=== PATIENT | female | born 1950 | race Caucasian/White ===

== ENCOUNTER 2023-04-24 22:31 | Inpatient (IN) | payer SELFPAY ==
[2023-04-25] MEDS ORDERED: methylPREDNISolone NA SUCC 125 MG/2 ML VIAL IVPB ONE (00:32)
[2023-04-25] MEDS ORDERED: ALBUTEROL SO4 2.5/IPRATROPIUM 0.5 INH SOL 3 ML VIAL.NEB. NEB ONE ×2 (00:32→01:21)
[2023-04-25] MEDS ORDERED: methylPREDNISolone NA SUCC 125 MG/2 ML VIAL ONE (01:21)
[2023-04-25 02:05] LABS: HEMATOCRIT 38.6 % (32.4-45.2); HEMOGLOBIN 13.2 GM/dL (10.7-15.3); MCH 31.9 pg (25.7-33.7); MCHC 34.1 g/dl (32.0-36.0); MEAN CELL VOLUME 93.5 fl (80-96); MEAN PLT VOLUME 9.2 fl (7.5-11.1); PLATELET COUNT 189 10^3/uL (134-434); RBC 4.12 M/mm3 (3.60-5.2); RDW 13.6 % (11.6-15.6); WHITE BLOOD COUNT 8.4 K/mm3 (4.0-10.0)
[2023-04-25 02:11] LABS: INR 1.4 (0.83-1.09); PROTHROMBIN TIME (PATIENT) 16.2 SEC (9.7-13.0)
[2023-04-25 02:14] LABS: ACTIVATED PTT 31.3 SECONDS (25.2-36.5)
[2023-04-25 02:37] LABS: POTASSIUM 3.8 mmol/L (3.5-5.1)
[2023-04-25 02:41] LABS: ALBUMIN 3.6 g/dl (3.4-5.0); CALCIUM 9.3 mg/dL (8.5-10.1); MAGNESIUM 2.6 mg/dL (1.8-2.4)
[2023-04-25 02:44] LABS: CREATININE 2.1 mg/dL (0.55-1.3)
[2023-04-25 02:46] LABS: BILIRUBIN,TOTAL 0.2 mg/dL (0.2-1); TOT PROT 7.2 g/dl (6.4-8.2)
[2023-04-25 02:49] LABS: N-TERMINAL BNP 3476.3 pg/ml (5-125)
[2023-04-25 04:39] LABS: ANISOCYTOSIS 2+; MACROCYTOSIS 0
[2023-04-25] MEDS ORDERED: DOCUSATE SODIUM 100 MG CAPSULE (FP) PO PRN (05:33)
[2023-04-25] MEDS ORDERED: guaiFENesin/D-M SUGAR-FREE/ACLHOL-FREE (200 MG/10 MG) 5 ML PO PRN (08:16)
[2023-04-25] MEDS ORDERED: BENZOCAINE/MENTHOL (CHLORASEPTIC ) LOZENGE MM PRN (08:16)
[2023-04-25] MEDS ORDERED: REMDESIVIR 200 MG in SODIUM CHLORIDE 250 ML IVPB ONE (08:30)
[2023-04-25] MEDS ORDERED: CARVEDILOL 25 MG TABLET (FP) ONE (08:46)
[2023-04-25] MEDS: INSULIN ASPART SLIDING SCALE (NOVOLOG) 1 VIAL SQ SCH ×4 (09:08→21:13)
[2023-04-25] MEDS: CARVEDILOL 25 MG TABLET (FP) PO SCH ×2 (09:09→22:43)
[2023-04-25] MEDS: methylPREDNISolone NA SUCC 40 MG/1 ML VIAL IVPUSH SCH ×2 (09:09→17:42)
[2023-04-25 10:53] LABS: PH,URINE 5.5 (5.0-8.0); URINE APPEARANCE CLEAR; URINE BILIRUBIN NEGATIVE (NEGATIVE); URINE COLOR YELLOW; URINE GLUCOSE (UA) 3+ (NEGATIVE); URINE KETONE NEGATIVE (NEGATIVE); URINE LEUK ESTERASE NEGATIVE (NEGATIVE); URINE NITRITE NEGATIVE (NEGATIVE); URINE PROTEIN NEGATIVE (NEGATIVE); URINE UROBILINOGEN 0.2 mg/dL (0.2-1.0)
[2023-04-25] MEDS ORDERED: INSULIN (NOVOLOG) ASPART 100 UNITS/ML 10ML VIAL ONE ×2 (17:44→21:08)
[2023-04-25 18:34] VITALS: BMI 43.0
[2023-04-25] MEDS: RIVAROXABAN 20 MG TABLET PO SCH (19:13)
[2023-04-25] MEDS: ALBUTEROL SO4 0.083% IH SOL 2.5 MG/3 ML VIAL.NEB. NEB PRN ×2 (19:27→22:00)
[2023-04-25] MEDS: carBAMazepine 100 MG TAB.CHEW PO SCH (22:51)
[2023-04-26] MEDS ORDERED: guaiFENesin/D-M SUGAR-FREE/ACLHOL-FREE 5 ML UNIT DOSE PO PRN (01:00)
[2023-04-26] MEDS: methylPREDNISolone NA SUCC 40 MG/1 ML VIAL IVPUSH SCH ×3 (01:06→17:29)
[2023-04-26] MEDS: INSULIN ASPART SLIDING SCALE (NOVOLOG) 1 VIAL SQ SCH ×5 (01:18→21:29)
[2023-04-26] MEDS ORDERED: INSULIN (NOVOLOG) ASPART 100 UNITS/ML 10ML VIAL ONE ×2 (06:48→21:19)
[2023-04-26 09:49] LABS: BASO % 0.3 % (0-2.0); EOS % 0.1 % (0-4.5); HEMATOCRIT 35.4 % (32.4-45.2); HEMOGLOBIN 11.8 GM/dL (10.7-15.3); LYMPH % 17.2 % (8-40); MCH 31.5 pg (25.7-33.7); MCHC 33.3 g/dl (32.0-36.0); MEAN CELL VOLUME 94.4 fl (80-96); MEAN PLT VOLUME 9.4 fl (7.5-11.1); MONO % 16.2 % (3.8-10.2); NEUT % 66.2 % (42.8-82.8); PLATELET COUNT 182 10^3/uL (134-434); RBC 3.75 M/mm3 (3.60-5.2); RDW 13.9 % (11.6-15.6); WHITE BLOOD COUNT 6.7 K/mm3 (4.0-10.0)
[2023-04-26 10:27] LABS: POTASSIUM 4.2 mmol/L (3.5-5.1)
[2023-04-26 10:57] LABS: CALCIUM 9.3 mg/dL (8.5-10.1)
[2023-04-26 11:01] LABS: CREATININE 1.7 mg/dL (0.55-1.3)
[2023-04-26] MEDS: CARVEDILOL 25 MG TABLET (FP) PO SCH ×2 (11:06→21:28)
[2023-04-26] MEDS: REMDESIVIR 100 MG in SODIUM CHLORIDE 250 ML IVPB SCH (11:06)
[2023-04-26] MEDS: ALBUTEROL SO4 2.5/IPRATROPIUM 0.5 INH SOL 3 ML VIAL.NEB. NEB SCH ×2 (15:35→20:26)
[2023-04-26] MEDS: RIVAROXABAN 20 MG TABLET PO SCH (17:29)
[2023-04-26] MEDS: amLODIPine BESYLATE 10 MG TABLET (FP) PO SCH (20:40)
[2023-04-26] MEDS: carBAMazepine 100 MG TAB.CHEW PO SCH (21:29)
[2023-04-26] MEDS: BUDESONIDE/FORMETEROL FUMARATE 160/4.5 mcg INHALER IH SCH (22:30)
[2023-04-27] MEDS ORDERED: INSULIN (NOVOLOG) ASPART 100 UNITS/ML 10ML VIAL SQ ONE (02:46)
[2023-04-27] MEDS ORDERED: hydrALAZINE HCL 20 MG/ML VIAL IVPB ONE (02:48)
[2023-04-27] MEDS: methylPREDNISolone NA SUCC 40 MG/1 ML VIAL IVPUSH SCH ×3 (02:48→17:28)
[2023-04-27] MEDS: INSULIN ASPART SLIDING SCALE (NOVOLOG) 1 VIAL SQ SCH ×4 (06:45→22:06)
[2023-04-27] MEDS: ALBUTEROL SO4 2.5/IPRATROPIUM 0.5 INH SOL 3 ML VIAL.NEB. NEB SCH ×4 (07:43→20:08)
[2023-04-27] MEDS: amLODIPine BESYLATE 10 MG TABLET (FP) PO SCH (10:45)
[2023-04-27] MEDS: REMDESIVIR 100 MG in SODIUM CHLORIDE 250 ML IVPB SCH (10:45)
[2023-04-27] MEDS: BUDESONIDE/FORMETEROL FUMARATE 160/4.5 mcg INHALER IH SCH ×2 (10:45→21:59)
[2023-04-27] MEDS: CARVEDILOL 25 MG TABLET (FP) PO SCH (10:45)
[2023-04-27] MEDS ORDERED: INSULIN (NOVOLOG) ASPART 100 UNITS/ML 10ML VIAL ONE ×3 (12:04→22:04)
[2023-04-27 13:20] LABS: HEMOGLOBIN 11.9 GM/dL (10.7-15.3); LYMPH % 11.2 % (8-40); MCH 30.9 pg (25.7-33.7); MEAN CELL VOLUME 93.6 fl (80-96); MEAN PLT VOLUME 9.2 fl (7.5-11.1); MONO % 11.7 % (3.8-10.2); NEUT % 77.1 % (42.8-82.8); PLATELET COUNT 173 10^3/uL (134-434); RBC 3.85 M/mm3 (3.60-5.2); RDW 14.2 % (11.6-15.6); WHITE BLOOD COUNT 7.2 K/mm3 (4.0-10.0)
[2023-04-27 13:46] LABS: CHLORIDE 102 mmol/L (98-107); POTASSIUM 4.8 mmol/L (3.5-5.1); SODIUM 138 mmol/L (136-145)
[2023-04-27 13:48] LABS: ALBUMIN 3.4 g/dl (3.4-5.0); ANION GAP 10 mmol/L (4-13); BLOOD UREA NITROGEN 66.3 mg/dL (7-18); CALCIUM 9.2 mg/dL (8.5-10.1); CO2 26 mmol/L (21-32)
[2023-04-27 13:52] LABS: BILIRUBIN,TOTAL 0.2 mg/dL (0.2-1); CREATININE 1.4 mg/dL (0.55-1.3); SGOT/AST 18 U/L (15-37); SGPT/ALT 35 U/L (13-61)
[2023-04-27 13:53] LABS: TOT PROT 6.7 g/dl (6.4-8.2)
[2023-04-27 13:54] LABS: ALK PHOS 50 U/L (45-117); GLUCOSE,RANDOM 419 mg/dL (74-106)
[2023-04-27] MEDS ORDERED: SODIUM CHLORIDE 0.45% 1,000 ML IV SCH (16:45)
[2023-04-27] MEDS: RIVAROXABAN 20 MG TABLET PO SCH (17:29)
[2023-04-27] MEDS ORDERED: INSULIN (NOVOLOG MIX 70/30) 100 UNITS/ML MDV SQ ONE (17:30)
[2023-04-27] MEDS: carBAMazepine 100 MG TAB.CHEW PO SCH (21:58)
[2023-04-27] MEDS: hydrALAZINE HCL 10 MG TABLET PO SCH (23:07)
[2023-04-27] MEDS: ATORVASTATIN CA 10 MG TABLET (FP) PO SCH (23:07)
[2023-04-28] MEDS: methylPREDNISolone NA SUCC 40 MG/1 ML VIAL IVPUSH SCH ×3 (02:01→17:36)
[2023-04-28] MEDS: hydrALAZINE HCL 10 MG TABLET PO SCH ×3 (05:47→22:14)
[2023-04-28] MEDS ORDERED: INSULIN (NOVOLOG) ASPART 100 UNITS/ML 10ML VIAL ONE ×2 (06:09→11:23)
[2023-04-28] MEDS: INSULIN ASPART SLIDING SCALE (NOVOLOG) 1 VIAL SQ SCH ×4 (06:38→22:43)
[2023-04-28] MEDS: ALBUTEROL SO4 2.5/IPRATROPIUM 0.5 INH SOL 3 ML VIAL.NEB. NEB SCH ×4 (07:25→20:25)
[2023-04-28 10:52] LABS: ALBUMIN 3.6 g/dl (3.4-5.0); ALK PHOS 53 U/L (45-117); ANION GAP 11 mmol/L (4-13); BILIRUBIN,TOTAL 0.4 mg/dL (0.2-1); BLOOD UREA NITROGEN 65.3 mg/dL (7-18); CALCIUM 9.2 mg/dL (8.5-10.1); CHLORIDE 100 mmol/L (98-107); CO2 23 mmol/L (21-32); CREATININE 1.7 mg/dL (0.55-1.3); GLUCOSE,RANDOM 409 mg/dL (74-106); POTASSIUM 4.8 mmol/L (3.5-5.1); SGOT/AST 18 U/L (15-37); SGPT/ALT 46 U/L (13-61); SODIUM 134 mmol/L (136-145); TOT PROT 7.1 g/dl (6.4-8.2)
[2023-04-28] MEDS: REMDESIVIR 100 MG in SODIUM CHLORIDE 250 ML IVPB SCH (11:09)
[2023-04-28] MEDS: BUDESONIDE/FORMETEROL FUMARATE 160/4.5 mcg INHALER IH SCH ×2 (11:29→22:19)
[2023-04-28] MEDS: ACETAMINOPHEN 325 MG TABLET (FP) PO PRN ×2 (13:15→22:14)
[2023-04-28] MEDS: RIVAROXABAN 20 MG TABLET PO SCH (17:36)
[2023-04-28] MEDS: ATORVASTATIN CA 10 MG TABLET (FP) PO SCH (22:14)
[2023-04-28 22:15] LABS: GLUCOSE,RANDOM 482 mg/dL (74-106)
[2023-04-28] MEDS: carBAMazepine 100 MG TAB.CHEW PO SCH (22:43)
[2023-04-29] MEDS: methylPREDNISolone NA SUCC 40 MG/1 ML VIAL IVPUSH SCH ×3 (02:15→18:13)
[2023-04-29] MEDS: INSULIN ASPART SLIDING SCALE (NOVOLOG) 1 VIAL SQ SCH ×5 (06:55→22:56)
[2023-04-29] MEDS: hydrALAZINE HCL 10 MG TABLET PO SCH ×2 (06:56→15:09)
[2023-04-29] MEDS: ALBUTEROL SO4 2.5/IPRATROPIUM 0.5 INH SOL 3 ML VIAL.NEB. NEB SCH ×4 (07:15→20:37)
[2023-04-29 09:21] LABS: BASO % 0.2 % (0-2.0); EOS % 0.1 % (0-4.5); LYMPH % 11.7 % (8-40); MCH 31.7 pg (25.7-33.7); MCHC 33.3 g/dl (32.0-36.0); MEAN CELL VOLUME 95.1 fl (80-96); MEAN PLT VOLUME 8.8 fl (7.5-11.1); MONO % 16.4 % (3.8-10.2); NEUT % 71.6 % (42.8-82.8); PLATELET COUNT 209 10^3/uL (134-434); RDW 13.4 % (11.6-15.6); WHITE BLOOD COUNT 9.6 K/mm3 (4.0-10.0)
[2023-04-29 09:44] LABS: CHLORIDE 100 mmol/L (98-107); POTASSIUM 4.9 mmol/L (3.5-5.1); SODIUM 132 mmol/L (136-145)
[2023-04-29 10:12] LABS: CALCIUM 9.5 mg/dL (8.5-10.1)
[2023-04-29 10:14] LABS: ALBUMIN 3.7 g/dl (3.4-5.0); ANION GAP 10 mmol/L (4-13); BLOOD UREA NITROGEN 71.1 mg/dL (7-18); CO2 23 mmol/L (21-32)
[2023-04-29 10:16] LABS: CREATININE 1.7 mg/dL (0.55-1.3); SGOT/AST 15 U/L (15-37); SGPT/ALT 47 U/L (13-61)
[2023-04-29 10:18] LABS: TOT PROT 7.3 g/dl (6.4-8.2)
[2023-04-29 10:20] LABS: ALK PHOS 54 U/L (45-117); BILIRUBIN,TOTAL 0.4 mg/dL (0.2-1)
[2023-04-29 10:21] LABS: GLUCOSE,RANDOM 414 mg/dL (74-106)
[2023-04-29] MEDS: INSULIN (LEVEMIR) 100 UNITS/ML UNITS SQ SCH ×2 (11:03→22:45)
[2023-04-29] MEDS: REMDESIVIR 100 MG in SODIUM CHLORIDE 250 ML IVPB SCH (11:03)
[2023-04-29] MEDS: BUDESONIDE/FORMETEROL FUMARATE 160/4.5 mcg INHALER IH SCH ×2 (11:03→22:50)
[2023-04-29] MEDS ORDERED: SODIUM CHLORIDE 0.45% 1,000 ML IV SCH (11:30)
[2023-04-29 12:42] LABS: LIPASE 182 U/L (73-393)
[2023-04-29] MEDS ORDERED: INSULIN (NOVOLOG) ASPART 100 UNITS/ML 10ML VIAL ONE (12:55)
[2023-04-29] MEDS: RIVAROXABAN 20 MG TABLET PO SCH (18:13)
[2023-04-29] MEDS: ATORVASTATIN CA 10 MG TABLET (FP) PO SCH (22:44)
[2023-04-29] MEDS: carBAMazepine 100 MG TAB.CHEW PO SCH (22:44)
[2023-04-29] MEDS: hydrALAZINE HCL 25 MG TABLET (FP) PO SCH (22:44)
[2023-04-30] MEDS: methylPREDNISolone NA SUCC 40 MG/1 ML VIAL IVPUSH SCH ×2 (02:37→09:43)
[2023-04-30] MEDS: ACETAMINOPHEN 325 MG TABLET (FP) PO PRN ×2 (02:44→15:40)
[2023-04-30] MEDS: ALBUTEROL SO4 0.083% IH SOL 2.5 MG/3 ML VIAL.NEB. NEB PRN (04:21)
[2023-04-30] MEDS: hydrALAZINE HCL 25 MG TABLET (FP) PO SCH ×3 (05:37→21:33)
[2023-04-30] MEDS: INSULIN ASPART SLIDING SCALE (NOVOLOG) 1 VIAL SQ SCH ×4 (06:42→21:42)
[2023-04-30] MEDS ORDERED: INSULIN (LEVEMIR) 100 UNITS/ML UNITS SQ SCH (07:30)
[2023-04-30] MEDS ORDERED: INSULIN (LEVEMIR) 100 UNITS/ML UNITS SQ ONE ×2 (07:34→09:00)
[2023-04-30] MEDS: ALBUTEROL SO4 2.5/IPRATROPIUM 0.5 INH SOL 3 ML VIAL.NEB. NEB SCH ×4 (07:55→20:16)
[2023-04-30] MEDS ORDERED: FUROSEMIDE 40 MG/4 ML INJECTABLE VIAL IVPUSH ONE (09:02)
[2023-04-30 09:20] LABS: HEMATOCRIT 39.1 % (32.4-45.2); MCH 31.8 pg (25.7-33.7); MCHC 33.4 g/dl (32.0-36.0); MEAN CELL VOLUME 95.2 fl (80-96); MEAN PLT VOLUME 8.6 fl (7.5-11.1); PLATELET COUNT 235 10^3/uL (134-434); RBC 4.11 M/mm3 (3.60-5.2); RDW 13.1 % (11.6-15.6); WHITE BLOOD COUNT 12.9 K/mm3 (4.0-10.0)
[2023-04-30 09:29] LABS: CALCIUM 9.5 mg/dL (8.5-10.1)
[2023-04-30 09:30] LABS: ALBUMIN 3.8 g/dl (3.4-5.0)
[2023-04-30 09:33] LABS: CREATININE 1.8 mg/dL (0.55-1.3)
[2023-04-30 09:34] LABS: BILIRUBIN,TOTAL 0.4 mg/dL (0.2-1)
[2023-04-30 09:35] LABS: TOT PROT 7.2 g/dl (6.4-8.2)
[2023-04-30] MEDS: metoPROLOL SUCCINATE 25 MG TAB.SR.24H (FP) PO SCH ×2 (09:46→21:33)
[2023-04-30] MEDS: BUDESONIDE/FORMETEROL FUMARATE 160/4.5 mcg INHALER IH SCH ×2 (09:47→21:44)
[2023-04-30 10:02] LABS: ANISOCYTOSIS 0; MACROCYTOSIS 0
[2023-04-30] MEDS ORDERED: ALBUTEROL SO4 0.083% IH SOL 2.5 MG/3 ML VIAL.NEB. NEB PRN (10:05)
[2023-04-30] MEDS ORDERED: hydrALAZINE HCL 20 MG/ML VIAL IVPUSH PRN (14:48)
[2023-04-30] MEDS ORDERED: VALSARTAN 80 MG TABLET PO ONE (15:17)
[2023-04-30 15:28] LABS: GLUCOSE,RANDOM 500 mg/dL (74-106)
[2023-04-30] MEDS ORDERED: INSULIN (NOVOLOG) ASPART 100 UNITS/ML 10ML VIAL ONE ×2 (17:48→21:19)
[2023-04-30] MEDS: RIVAROXABAN 20 MG TABLET PO SCH (17:54)
[2023-04-30] MEDS: carBAMazepine 100 MG TAB.CHEW PO SCH (21:32)
[2023-04-30] MEDS: ATORVASTATIN CA 10 MG TABLET (FP) PO SCH (21:33)
[2023-04-30] MEDS: INSULIN (LEVEMIR) 100 UNITS/ML UNITS SQ SCH (21:34)
[2023-04-30] MEDS ORDERED: methylPREDNISolone NA SUCC 40 MG/1 ML VIAL IVPUSH SCH (22:00)
[2023-05-01] MEDS: hydrALAZINE HCL 25 MG TABLET (FP) PO SCH ×3 (05:16→21:07)
[2023-05-01] MEDS: INSULIN ASPART SLIDING SCALE (NOVOLOG) 1 VIAL SQ SCH ×4 (06:09→21:09)
[2023-05-01] MEDS: INSULIN (LEVEMIR) 100 UNITS/ML UNITS SQ SCH ×2 (06:10→21:08)
[2023-05-01] MEDS ORDERED: guaiFENesin/D-M SUGAR-FREE/ACLHOL-FREE 5 ML UNIT DOSE PO PRN (07:23)
[2023-05-01] MEDS ORDERED: BENZOCAINE/MENTHOL (CHLORASEPTIC ) LOZENGE MM PRN (07:23)
[2023-05-01] MEDS ORDERED: DOCUSATE SODIUM 100 MG CAPSULE (FP) PO PRN (07:23)
[2023-05-01] MEDS ORDERED: ALBUTEROL SO4 0.083% IH SOL 2.5 MG/3 ML VIAL.NEB. NEB PRN (07:23)
[2023-05-01] MEDS ORDERED: ACETAMINOPHEN 325 MG TABLET (FP) PO PRN (07:23)
[2023-05-01] MEDS: ALBUTEROL SO4 2.5/IPRATROPIUM 0.5 INH SOL 3 ML VIAL.NEB. NEB SCH ×4 (07:43→20:30)
[2023-05-01 09:16] LABS: HEMATOCRIT 40.1 % (32.4-45.2); HEMOGLOBIN 13.3 GM/dL (10.7-15.3); MCHC 33.1 g/dl (32.0-36.0); MEAN CELL VOLUME 93.7 fl (80-96); MEAN PLT VOLUME 8.5 fl (7.5-11.1); PLATELET COUNT 255 10^3/uL (134-434); RBC 4.28 M/mm3 (3.60-5.2); RDW 13.8 % (11.6-15.6); WHITE BLOOD COUNT 17.6 K/mm3 (4.0-10.0)
[2023-05-01 09:57] LABS: POTASSIUM 4.6 mmol/L (3.5-5.1)
[2023-05-01 10:16] LABS: CALCIUM 10.2 mg/dL (8.5-10.1)
[2023-05-01 10:17] LABS: BLOOD UREA NITROGEN 54.7 mg/dL (7-18)
[2023-05-01 10:20] LABS: CREATININE 1.3 mg/dL (0.55-1.3)
[2023-05-01] MEDS: metoPROLOL SUCCINATE 25 MG TAB.SR.24H (FP) PO SCH ×2 (10:43→21:07)
[2023-05-01] MEDS: BUDESONIDE/FORMETEROL FUMARATE 160/4.5 mcg INHALER IH SCH ×2 (11:41→21:27)
[2023-05-01] MEDS ORDERED: methylPREDNISolone NA SUCC 40 MG/1 ML VIAL IVPUSH SCH (11:45)
[2023-05-01] MEDS ORDERED: FUROSEMIDE 40 MG TABLET (FP) PO ONE (12:00)
[2023-05-01] MEDS: VALSARTAN 80 MG TABLET PO SCH (12:34)
[2023-05-01] MEDS: methylPREDNISolone NA SUCC 40 MG/1 ML VIAL IVPUSH SCH (17:30)
[2023-05-01] MEDS: RIVAROXABAN 20 MG TABLET PO SCH (17:30)
[2023-05-01] MEDS: ATORVASTATIN CA 10 MG TABLET (FP) PO SCH (21:07)
[2023-05-01] MEDS: carBAMazepine 100 MG TAB.CHEW PO SCH (21:07)
[2023-05-01] MEDS ORDERED: INSULIN (LEVEMIR) 100 UNITS/ML UNITS SQ SCH (22:00)
[2023-05-02] MEDS: methylPREDNISolone NA SUCC 40 MG/1 ML VIAL IVPUSH SCH ×2 (02:22→11:35)
[2023-05-02] MEDS: INSULIN (LEVEMIR) 100 UNITS/ML UNITS SQ SCH (06:10)
[2023-05-02] MEDS: INSULIN ASPART SLIDING SCALE (NOVOLOG) 1 VIAL SQ SCH ×4 (06:11→21:22)
[2023-05-02] MEDS: hydrALAZINE HCL 25 MG TABLET (FP) PO SCH ×3 (06:12→21:22)
[2023-05-02 08:51] LABS: BASO % 0.4 % (0-2.0); HEMATOCRIT 37.7 % (32.4-45.2); HEMOGLOBIN 12.4 GM/dL (10.7-15.3); LYMPH % 6.5 % (8-40); MCH 30.6 pg (25.7-33.7); MCHC 32.9 g/dl (32.0-36.0); MEAN CELL VOLUME 93.1 fl (80-96); MEAN PLT VOLUME 8.4 fl (7.5-11.1); MONO % 8.4 % (3.8-10.2); NEUT % 84.7 % (42.8-82.8); PLATELET COUNT 202 10^3/uL (134-434); RBC 4.05 M/mm3 (3.60-5.2); RDW 13.6 % (11.6-15.6); WHITE BLOOD COUNT 11.7 K/mm3 (4.0-10.0)
[2023-05-02] MEDS: ALBUTEROL SO4 2.5/IPRATROPIUM 0.5 INH SOL 3 ML VIAL.NEB. NEB SCH ×4 (09:01→20:05)
[2023-05-02 09:48] LABS: POTASSIUM 4.4 mmol/L (3.5-5.1)
[2023-05-02 09:59] LABS: BLOOD UREA NITROGEN 39.8 mg/dL (7-18); CALCIUM 9.3 mg/dL (8.5-10.1)
[2023-05-02 10:02] LABS: CREATININE 1.4 mg/dL (0.55-1.3)
[2023-05-02 10:03] LABS: BILIRUBIN,TOTAL 0.6 mg/dL (0.2-1)
[2023-05-02 10:04] LABS: TOT PROT 6.2 g/dl (6.4-8.2)
[2023-05-02] MEDS: VALSARTAN 80 MG TABLET PO SCH (11:35)
[2023-05-02] MEDS: BUDESONIDE/FORMETEROL FUMARATE 160/4.5 mcg INHALER IH SCH ×2 (11:37→21:26)
[2023-05-02] MEDS ORDERED: FUROSEMIDE 40 MG TABLET (FP) PO ONE (15:55)
[2023-05-02] MEDS: methylPREDNISolone NA SUCC 125 MG/2 ML VIAL IVPUSH SCH (17:32)
[2023-05-02] MEDS: RIVAROXABAN 20 MG TABLET PO SCH (17:32)
[2023-05-02] MEDS: ATORVASTATIN CA 10 MG TABLET (FP) PO SCH (21:22)
[2023-05-02] MEDS: carBAMazepine 100 MG TAB.CHEW PO SCH (21:22)
[2023-05-02] MEDS ORDERED: INSULIN (LEVEMIR) 100 UNITS/ML UNITS SQ SCH (22:00)
[2023-05-03] MEDS: methylPREDNISolone NA SUCC 125 MG/2 ML VIAL IVPUSH SCH ×2 (02:18→11:32)
[2023-05-03] MEDS: hydrALAZINE HCL 25 MG TABLET (FP) PO SCH ×3 (06:03→21:14)
[2023-05-03] MEDS: INSULIN (NOVOLOG) ASPART 100 UNITS/ML 10ML VIAL SQ SCH ×3 (06:04→17:24)
[2023-05-03] MEDS ORDERED: INSULIN (LEVEMIR) 100 UNITS/ML UNITS SQ SCH (07:00)
[2023-05-03] MEDS: ALBUTEROL SO4 2.5/IPRATROPIUM 0.5 INH SOL 3 ML VIAL.NEB. NEB SCH ×4 (07:46→20:00)
[2023-05-03 08:40] LABS: POTASSIUM 4.1 mmol/L (3.5-5.1)
[2023-05-03 08:43] LABS: ALBUMIN 2.9 g/dl (3.4-5.0); BLOOD UREA NITROGEN 37.9 mg/dL (7-18); CALCIUM 8.8 mg/dL (8.5-10.1)
[2023-05-03 08:46] LABS: CREATININE 1.2 mg/dL (0.55-1.3)
[2023-05-03 08:48] LABS: BILIRUBIN,TOTAL 0.5 mg/dL (0.2-1)
[2023-05-03] MEDS: VALSARTAN 80 MG TABLET PO SCH (11:33)
[2023-05-03] MEDS: INSULIN ASPART SLIDING SCALE (NOVOLOG) 1 VIAL SQ SCH ×3 (12:32→21:38)
[2023-05-03] MEDS: BUDESONIDE/FORMETEROL FUMARATE 160/4.5 mcg INHALER IH SCH ×2 (15:04→21:57)
[2023-05-03] MEDS: RIVAROXABAN 20 MG TABLET PO SCH (17:35)
[2023-05-03] MEDS: carBAMazepine 100 MG TAB.CHEW PO SCH (21:13)
[2023-05-03] MEDS: ATORVASTATIN CA 10 MG TABLET (FP) PO SCH (21:13)
[2023-05-03] MEDS: INSULIN (LEVEMIR) 100 UNITS/ML UNITS SQ SCH (21:37)
[2023-05-03] MEDS ORDERED: methylPREDNISolone NA SUCC 125 MG/2 ML VIAL IVPUSH SCH (22:00)
[2023-05-04] MEDS: INSULIN (NOVOLOG MIX 70/30) 100 UNITS/ML MDV SQ SCH ×2 (06:25→17:15)
[2023-05-04] MEDS: INSULIN (LEVEMIR) 100 UNITS/ML UNITS SQ SCH ×2 (06:25→21:12)
[2023-05-04] MEDS: hydrALAZINE HCL 25 MG TABLET (FP) PO SCH ×3 (06:25→21:11)
[2023-05-04] MEDS: ALBUTEROL SO4 2.5/IPRATROPIUM 0.5 INH SOL 3 ML VIAL.NEB. NEB SCH ×4 (08:15→20:24)
[2023-05-04] MEDS ORDERED: methylPREDNISolone NA SUCC 40 MG/1 ML VIAL IVPUSH SCH (10:00)
[2023-05-04] MEDS: VALSARTAN 80 MG TABLET PO SCH (10:14)
[2023-05-04] MEDS: BUDESONIDE/FORMETEROL FUMARATE 160/4.5 mcg INHALER IH SCH ×2 (10:16→21:14)
[2023-05-04] MEDS ORDERED: methylPREDNISolone NA SUCC 40 MG/1 ML VIAL IVPUSH ONE (13:17)
[2023-05-04] MEDS: FUROSEMIDE 20 MG TABLET (FP) PO SCH (16:34)
[2023-05-04] MEDS: RIVAROXABAN 20 MG TABLET PO SCH (17:15)
[2023-05-04] MEDS: methylPREDNISolone NA SUCC 40 MG/1 ML VIAL IVPUSH SCH (21:11)
[2023-05-04] MEDS: ATORVASTATIN CA 10 MG TABLET (FP) PO SCH (21:11)
[2023-05-04] MEDS: INSULIN ASPART SLIDING SCALE (NOVOLOG) 1 VIAL SQ SCH (21:12)
[2023-05-04] MEDS: carBAMazepine 100 MG TAB.CHEW PO SCH (21:13)
[2023-05-05] MEDS: INSULIN (NOVOLOG MIX 70/30) 100 UNITS/ML MDV SQ SCH ×2 (06:18→16:36)
[2023-05-05] MEDS: INSULIN (LEVEMIR) 100 UNITS/ML UNITS SQ SCH ×2 (06:18→21:25)
[2023-05-05] MEDS: hydrALAZINE HCL 25 MG TABLET (FP) PO SCH ×3 (06:18→21:02)
[2023-05-05 08:37] LABS: POTASSIUM 4.8 mmol/L (3.5-5.1)
[2023-05-05] MEDS: ALBUTEROL SO4 2.5/IPRATROPIUM 0.5 INH SOL 3 ML VIAL.NEB. NEB SCH ×4 (08:38→20:05)
[2023-05-05 08:48] LABS: ALBUMIN 3.2 g/dl (3.4-5.0); BLOOD UREA NITROGEN 38.8 mg/dL (7-18); CALCIUM 9.1 mg/dL (8.5-10.1)
[2023-05-05 08:52] LABS: CREATININE 1.3 mg/dL (0.55-1.3)
[2023-05-05 08:53] LABS: BILIRUBIN,TOTAL 0.5 mg/dL (0.2-1); TOT PROT 6.6 g/dl (6.4-8.2)
[2023-05-05] MEDS: methylPREDNISolone NA SUCC 40 MG/1 ML VIAL IVPUSH SCH ×2 (09:49→21:03)
[2023-05-05] MEDS: BUDESONIDE/FORMETEROL FUMARATE 160/4.5 mcg INHALER IH SCH ×2 (09:50→21:15)
[2023-05-05] MEDS: VALSARTAN 80 MG TABLET PO SCH (09:51)
[2023-05-05] MEDS: FUROSEMIDE 20 MG TABLET (FP) PO SCH (09:52)
[2023-05-05] MEDS ORDERED: FUROSEMIDE 40 MG/4 ML INJECTABLE VIAL IVPUSH ONE (16:43)
[2023-05-05] MEDS: RIVAROXABAN 20 MG TABLET PO SCH (17:23)
[2023-05-05] MEDS: carBAMazepine 100 MG TAB.CHEW PO SCH (21:02)
[2023-05-05] MEDS: ATORVASTATIN CA 10 MG TABLET (FP) PO SCH (21:03)
[2023-05-05] MEDS: INSULIN ASPART SLIDING SCALE (NOVOLOG) 1 VIAL SQ SCH (21:24)
[2023-05-06] MEDS: hydrALAZINE HCL 25 MG TABLET (FP) PO SCH ×3 (05:28→21:03)
[2023-05-06] MEDS: INSULIN (LEVEMIR) 100 UNITS/ML UNITS SQ SCH ×2 (06:31→21:04)
[2023-05-06] MEDS: INSULIN (NOVOLOG MIX 70/30) 100 UNITS/ML MDV SQ SCH ×2 (06:32→17:23)
[2023-05-06 08:45] LABS: HEMATOCRIT 37.3 % (32.4-45.2); HEMOGLOBIN 12.3 GM/dL (10.7-15.3); MCH 30.7 pg (25.7-33.7); MCHC 32.9 g/dl (32.0-36.0); MEAN CELL VOLUME 93.4 fl (80-96); MEAN PLT VOLUME 8.2 fl (7.5-11.1); PLATELET COUNT 159 10^3/uL (134-434); RBC 3.99 M/mm3 (3.60-5.2); RDW 13.8 % (11.6-15.6); WHITE BLOOD COUNT 8.4 K/mm3 (4.0-10.0)
[2023-05-06 08:55] VITALS: RESP 18
[2023-05-06 09:09] LABS: ANISOCYTOSIS 0; HELMET CELLS 0; HOWELL-JOLLY BODIES 0; MACROCYTOSIS 0; OVALOCYTE 0; ROULEAU 0; SICKELED CELLS 0; TARGET CELLS 0; TEAR DROP CELLS 0; TOXIC GRANULATION 0
[2023-05-06] MEDS: FUROSEMIDE 40 MG TABLET (FP) PO SCH (09:24)
[2023-05-06] MEDS: methylPREDNISolone NA SUCC 40 MG/1 ML VIAL IVPUSH SCH ×2 (09:24→21:03)
[2023-05-06] MEDS: VALSARTAN 80 MG TABLET PO SCH (09:24)
[2023-05-06 09:27] LABS: POTASSIUM 4.2 mmol/L (3.5-5.1)
[2023-05-06] MEDS: BUDESONIDE/FORMETEROL FUMARATE 160/4.5 mcg INHALER IH SCH ×2 (09:27→21:14)
[2023-05-06 09:31] LABS: CALCIUM 8.7 mg/dL (8.5-10.1)
[2023-05-06 09:32] LABS: BLOOD UREA NITROGEN 42.7 mg/dL (7-18)
[2023-05-06 09:34] LABS: CREATININE 1.2 mg/dL (0.55-1.3)
[2023-05-06 09:36] LABS: BILIRUBIN,TOTAL 0.3 mg/dL (0.2-1); TOT PROT 5.9 g/dl (6.4-8.2)
[2023-05-06] MEDS: RIVAROXABAN 20 MG TABLET PO SCH (17:24)
[2023-05-06] MEDS: ATORVASTATIN CA 10 MG TABLET (FP) PO SCH (21:03)
[2023-05-06] MEDS: carBAMazepine 100 MG TAB.CHEW PO SCH (21:04)
[2023-05-06] MEDS: INSULIN ASPART SLIDING SCALE (NOVOLOG) 1 VIAL SQ SCH (21:08)
[2023-05-07] MEDS: hydrALAZINE HCL 25 MG TABLET (FP) PO SCH ×3 (05:04→21:50)
[2023-05-07] MEDS: INSULIN (LEVEMIR) 100 UNITS/ML UNITS SQ SCH ×2 (06:06→22:02)
[2023-05-07] MEDS: INSULIN (NOVOLOG MIX 70/30) 100 UNITS/ML MDV SQ SCH ×2 (06:06→16:51)
[2023-05-07] MEDS: BUDESONIDE/FORMETEROL FUMARATE 160/4.5 mcg INHALER IH SCH ×2 (09:56→21:53)
[2023-05-07] MEDS: FUROSEMIDE 40 MG TABLET (FP) PO SCH (09:56)
[2023-05-07] MEDS: VALSARTAN 80 MG TABLET PO SCH (09:56)
[2023-05-07] MEDS: methylPREDNISolone NA SUCC 40 MG/1 ML VIAL IVPUSH SCH (09:56)
[2023-05-07] MEDS ORDERED: FUROSEMIDE 40 MG/4 ML INJECTABLE VIAL IVPUSH ONE (15:00)
[2023-05-07] MEDS: RIVAROXABAN 20 MG TABLET PO SCH (17:07)
[2023-05-07] MEDS: carBAMazepine 100 MG TAB.CHEW PO SCH (21:50)
[2023-05-07] MEDS: ATORVASTATIN CA 10 MG TABLET (FP) PO SCH (21:50)
[2023-05-07] MEDS: predniSONE 20 MG TABLET (UD) PO SCH (22:02)
[2023-05-07] MEDS: INSULIN ASPART SLIDING SCALE (NOVOLOG) 1 VIAL SQ SCH (22:03)
[2023-05-08] MEDS: hydrALAZINE HCL 25 MG TABLET (FP) PO SCH ×2 (05:18→14:23)
[2023-05-08] MEDS: INSULIN (NOVOLOG MIX 70/30) 100 UNITS/ML MDV SQ SCH (06:08)
[2023-05-08] MEDS: INSULIN (LEVEMIR) 100 UNITS/ML UNITS SQ SCH (06:08)
[2023-05-08] MEDS: predniSONE 20 MG TABLET (UD) PO SCH (09:28)
[2023-05-08] MEDS: FUROSEMIDE 40 MG TABLET (FP) PO SCH (09:28)
[2023-05-08] MEDS: VALSARTAN 80 MG TABLET PO SCH (09:28)
[2023-05-08] MEDS: BUDESONIDE/FORMETEROL FUMARATE 160/4.5 mcg INHALER IH SCH (09:29)
[2023-05-08 14:23] VITALS: PULSE 62
[2023-05-08 15:44] VITALS: BP 135/54; TEMP 98.2
== END 2023-05-08 17:03 | disposition home or self-care (01) | DRG 137 ==
LOC: JER 22:31 → JERBED 04-25 05:15 → J8W 04-25 18:17 → J4S 04-30 23:51
PROVIDERS: ADMIT Internal Medicine; ATTEND Internal Medicine
PROC: XW033E5 Introduction of Remdesivir Anti-infective into Peripheral Vein, Percutaneous Approach, New Technology Group 5 (ICD-10-PCS; principal; 2023-04-25)
DX: U07.1 COVID-19 (principal); E11.22 Type 2 diabetes mellitus with diabetic chronic kidney disease; I13.0 Hypertensive heart and chronic kidney disease with heart failure and stage 1 through stage 4 chronic kidney disease, or unspecified chronic kidney disease; N17.9 Acute kidney failure, unspecified; J45.901 Unspecified asthma with (acute) exacerbation; Z68.41 Body mass index [BMI] 40.0-44.9, adult; E11.65 Type 2 diabetes mellitus with hyperglycemia; E66.01 Morbid (severe) obesity due to excess calories; E83.41 Hypermagnesemia; I48.91 Unspecified atrial fibrillation; E78.00 Pure hypercholesterolemia, unspecified; E78.5 Hyperlipidemia, unspecified; I10 Essential (primary) hypertension; J02.9 Acute pharyngitis, unspecified; N18.9 Chronic kidney disease, unspecified; G47.33 Obstructive sleep apnea (adult) (pediatric); I50.9 Heart failure, unspecified
CPT/HCPCS: 0241U-QW; 36415; 71045-TC-FY; 76775-TC; 80048; 80053; 80061; 81003; 82550; 82947; 82962; 83036; 83605; 83690; 83735; 83880; 84443; 84484; 85025; 85027; 85610; 85730; 87040; 87086; 93005; 93010; 93306-TC; 94640; 94660; 94761; 97116-GP; 97162-GP; 99285-25; J0248

== ENCOUNTER 2023-05-11 23:23 | Inpatient (IN) | payer SELFPAY ==
[2023-05-11 23:32] VITALS: BMI 45.7
[2023-05-12 00:51] LABS: BASO % 0.4 % (0-2.0); EOS % 0.1 % (0-4.5); HEMATOCRIT 36.3 % (32.4-45.2); LYMPH % 8.4 % (8-40); MCH 30.8 pg (25.7-33.7); MCHC 33.1 g/dl (32.0-36.0); MEAN CELL VOLUME 92.9 fl (80-96); MONO % 5.3 % (3.8-10.2); NEUT % 85.8 % (42.8-82.8); PLATELET COUNT 118 10^3/uL (134-434); RBC 3.91 M/mm3 (3.60-5.2); RDW 13.5 % (11.6-15.6); WHITE BLOOD COUNT 10.5 K/mm3 (4.0-10.0)
[2023-05-12 01:01] LABS: INR 1.36 (0.83-1.09); PROTHROMBIN TIME (PATIENT) 15.7 SEC (9.7-13.0)
[2023-05-12 01:04] LABS: ACTIVATED PTT 27.4 SECONDS (25.2-36.5)
[2023-05-12 01:12] LABS: POTASSIUM 4.7 mmol/L (3.5-5.1)
[2023-05-12 01:14] LABS: CALCIUM 8.1 mg/dL (8.5-10.1)
[2023-05-12 01:15] LABS: ALBUMIN 2.7 g/dl (3.4-5.0)
[2023-05-12 01:18] LABS: CREATININE 1.1 mg/dL (0.55-1.3)
[2023-05-12 01:19] LABS: BILIRUBIN,TOTAL 0.6 mg/dL (0.2-1); TOT PROT 5.9 g/dl (6.4-8.2)
[2023-05-12 01:22] LABS: N-TERMINAL BNP 4006.7 pg/ml (5-125)
[2023-05-12 01:31] LABS: BLOOD UREA NITROGEN 26.4 mg/dL (7-18)
[2023-05-12] MEDS ORDERED: FUROSEMIDE 40 MG/4 ML INJECTABLE VIAL IVPUSH ONE (02:23)
[2023-05-12] MEDS ORDERED: FUROSEMIDE 40 MG/4 ML INJECTABLE VIAL ONE (02:52)
[2023-05-12 04:07] LABS: URINE APPEARANCE CLEAR; URINE BILIRUBIN NEGATIVE (NEGATIVE); URINE COLOR YELLOW; URINE GLUCOSE (UA) 2+ (NEGATIVE); URINE KETONE NEGATIVE (NEGATIVE); URINE LEUK ESTERASE NEGATIVE (NEGATIVE); URINE NITRITE NEGATIVE (NEGATIVE); URINE PROTEIN NEGATIVE (NEGATIVE); URINE UROBILINOGEN 0.2 mg/dL (0.2-1.0)
[2023-05-12] MEDS ORDERED: PIPERACILLIN/TAZOB 3.375 GM 3.375 GM in DEXTROSE 5%-WATER - 50 ML IVPB SCH ×2 (11:15→18:00)
[2023-05-12] MEDS ORDERED: hydrALAZINE HCL 50 MG TABLET (FP) ONE ×2 (12:05→21:57)
[2023-05-12] MEDS ORDERED: PIPERACILLIN/TAZOB 3.375 GM 3.375 GM/50 ML BAG IVPB ONE ×2 (12:06→18:27)
[2023-05-12] MEDS: hydrALAZINE HCL 25 MG TABLET (FP) PO SCH ×2 (12:09→22:05)
[2023-05-12] MEDS: BUDESONIDE/FORMETEROL FUMARATE 160/4.5 mcg INHALER IH SCH ×2 (12:39→22:06)
[2023-05-12] MEDS ORDERED: ALBUTEROL SO4 2.5/IPRATROPIUM 0.5 INH SOL 3 ML VIAL.NEB. NEB PRN (14:22)
[2023-05-12] MEDS ORDERED: methylPREDNISolone NA SUCC 125 MG/2 ML VIAL IVPUSH ONE (14:22)
[2023-05-12] MEDS ORDERED: ALBUTEROL SO4 2.5/IPRATROPIUM 0.5 INH SOL 3 ML VIAL.NEB. NEB ONE ×2 (15:25→21:57)
[2023-05-12] MEDS: INSULIN ASPART SLIDING SCALE (NOVOLOG) 1 VIAL SQ SCH ×2 (18:29→22:24)
[2023-05-12] MEDS: PIPERACILLIN/TAZOB 3.375 GM 3.375 GM in DEXTROSE 5%-WATER - 50 ML IVPB SCH (18:29)
[2023-05-12] MEDS: RIVAROXABAN 20 MG TABLET PO SCH (19:36)
[2023-05-12] MEDS ORDERED: carBAMazepine 200 MG TABLET ONE (21:57)
[2023-05-12] MEDS ORDERED: ATORVASTATIN CA 10 MG TABLET (FP) ONE (21:57)
[2023-05-12] MEDS: ATORVASTATIN CA 10 MG TABLET (FP) PO SCH (22:05)
[2023-05-12] MEDS: carBAMazepine 100 MG TAB.CHEW PO SCH (22:06)
[2023-05-12] MEDS ORDERED: INSULIN (LEVEMIR) 100 UNITS/ML UNITS SQ ONE (22:09)
[2023-05-12] MEDS ORDERED: INSULIN (NOVOLOG) ASPART 100 UNITS/ML 10ML VIAL ONE (22:09)
[2023-05-12] MEDS: INSULIN (LEVEMIR) 100 UNITS/ML UNITS SQ SCH (22:24)
[2023-05-13] MEDS ORDERED: PIPERACILLIN/TAZOBACTAM 3.375 GM VIAL IVPB ONE (01:07)
[2023-05-13] MEDS: PIPERACILLIN/TAZOB 3.375 GM 3.375 GM in DEXTROSE 5%-WATER - 50 ML IVPB SCH ×3 (01:19→17:43)
[2023-05-13] MEDS: hydrALAZINE HCL 25 MG TABLET (FP) PO SCH ×3 (05:12→21:46)
[2023-05-13] MEDS: INSULIN (LEVEMIR) 100 UNITS/ML UNITS SQ SCH ×2 (06:40→21:44)
[2023-05-13] MEDS: INSULIN ASPART SLIDING SCALE (NOVOLOG) 1 VIAL SQ SCH ×4 (06:41→21:47)
[2023-05-13] MEDS ORDERED: predniSONE 20 MG TABLET (UD) PO SCH (10:00)
[2023-05-13] MEDS: FUROSEMIDE 40 MG/4 ML INJECTABLE VIAL IVPUSH SCH (10:05)
[2023-05-13 10:06] LABS: POTASSIUM 4.4 mmol/L (3.5-5.1)
[2023-05-13] MEDS: BUDESONIDE/FORMETEROL FUMARATE 160/4.5 mcg INHALER IH SCH ×2 (10:06→21:53)
[2023-05-13 10:07] LABS: BASO % 0.4 % (0-2.0); EOS % 0.2 % (0-4.5); HEMATOCRIT 34.6 % (32.4-45.2); HEMOGLOBIN 11.5 GM/dL (10.7-15.3); LYMPH % 11.9 % (8-40); MCH 30.2 pg (25.7-33.7); MCHC 33.1 g/dl (32.0-36.0); MEAN CELL VOLUME 91.3 fl (80-96); MEAN PLT VOLUME 8.2 fl (7.5-11.1); MONO % 4.2 % (3.8-10.2); NEUT % 83.3 % (42.8-82.8); PLATELET COUNT 123 10^3/uL (134-434); RBC 3.79 M/mm3 (3.60-5.2); RDW 13.7 % (11.6-15.6); WHITE BLOOD COUNT 8.8 K/mm3 (4.0-10.0)
[2023-05-13 10:11] LABS: ALBUMIN 2.6 g/dl (3.4-5.0); BLOOD UREA NITROGEN 32.4 mg/dL (7-18); CALCIUM 8.8 mg/dL (8.5-10.1)
[2023-05-13 10:14] LABS: CREATININE 1.2 mg/dL (0.55-1.3)
[2023-05-13 10:16] LABS: BILIRUBIN,TOTAL 0.5 mg/dL (0.2-1); TOT PROT 5.8 g/dl (6.4-8.2)
[2023-05-13] MEDS ORDERED: INSULIN (NOVOLOG) ASPART 100 UNITS/ML 10ML VIAL ONE (12:13)
[2023-05-13] MEDS: RIVAROXABAN 20 MG TABLET PO SCH (17:43)
[2023-05-13] MEDS: methylPREDNISolone NA SUCC 40 MG/1 ML VIAL IVPUSH SCH (17:43)
[2023-05-13] MEDS: ATORVASTATIN CA 10 MG TABLET (FP) PO SCH (21:46)
[2023-05-13] MEDS: carBAMazepine 100 MG TAB.CHEW PO SCH (22:45)
[2023-05-14] MEDS: methylPREDNISolone NA SUCC 40 MG/1 ML VIAL IVPUSH SCH ×3 (02:42→17:25)
[2023-05-14] MEDS: PIPERACILLIN/TAZOB 3.375 GM 3.375 GM in DEXTROSE 5%-WATER - 50 ML IVPB SCH ×3 (02:44→17:25)
[2023-05-14] MEDS: hydrALAZINE HCL 25 MG TABLET (FP) PO SCH ×3 (06:53→22:14)
[2023-05-14] MEDS: INSULIN (LEVEMIR) 100 UNITS/ML UNITS SQ SCH ×2 (06:54→22:15)
[2023-05-14] MEDS: INSULIN ASPART SLIDING SCALE (NOVOLOG) 1 VIAL SQ SCH ×4 (06:55→22:18)
[2023-05-14 08:33] LABS: BASO % 0.3 % (0-2.0); HEMATOCRIT 37.4 % (32.4-45.2); LYMPH % 8.4 % (8-40); MCH 29.8 pg (25.7-33.7); MEAN CELL VOLUME 92.9 fl (80-96); MEAN PLT VOLUME 8.2 fl (7.5-11.1); MONO % 3.2 % (3.8-10.2); NEUT % 88.1 % (42.8-82.8); PLATELET COUNT 137 10^3/uL (134-434); RBC 4.03 M/mm3 (3.60-5.2); RDW 13.1 % (11.6-15.6); WHITE BLOOD COUNT 12.8 K/mm3 (4.0-10.0)
[2023-05-14 08:41] LABS: POTASSIUM 4.5 mmol/L (3.5-5.1)
[2023-05-14 08:43] LABS: ALBUMIN 2.7 g/dl (3.4-5.0); BLOOD UREA NITROGEN 33.8 mg/dL (7-18)
[2023-05-14 08:46] LABS: CREATININE 1.2 mg/dL (0.55-1.3)
[2023-05-14 08:48] LABS: BILIRUBIN,TOTAL 0.7 mg/dL (0.2-1); TOT PROT 6.3 g/dl (6.4-8.2)
[2023-05-14] MEDS: FUROSEMIDE 40 MG/4 ML INJECTABLE VIAL IVPUSH SCH (10:33)
[2023-05-14] MEDS: BUDESONIDE/FORMETEROL FUMARATE 160/4.5 mcg INHALER IH SCH ×2 (10:34→22:20)
[2023-05-14] MEDS: RIVAROXABAN 20 MG TABLET PO SCH (17:25)
[2023-05-14] MEDS: INSULIN (NOVOLOG) ASPART 100 UNITS/ML 10ML VIAL SQ SCH (17:26)
[2023-05-14] MEDS: ATORVASTATIN CA 10 MG TABLET (FP) PO SCH (22:15)
[2023-05-14] MEDS: carBAMazepine 100 MG TAB.CHEW PO SCH (22:20)
[2023-05-15] MEDS: methylPREDNISolone NA SUCC 40 MG/1 ML VIAL IVPUSH SCH ×3 (02:40→17:35)
[2023-05-15] MEDS: PIPERACILLIN/TAZOB 3.375 GM 3.375 GM in DEXTROSE 5%-WATER - 50 ML IVPB SCH (02:41)
[2023-05-15] MEDS: hydrALAZINE HCL 25 MG TABLET (FP) PO SCH ×3 (06:41→22:22)
[2023-05-15] MEDS: INSULIN (LEVEMIR) 100 UNITS/ML UNITS SQ SCH ×2 (06:42→22:23)
[2023-05-15] MEDS: INSULIN ASPART SLIDING SCALE (NOVOLOG) 1 VIAL SQ SCH ×4 (06:43→22:24)
[2023-05-15] MEDS: INSULIN (NOVOLOG) ASPART 100 UNITS/ML 10ML VIAL SQ SCH ×3 (06:44→17:35)
[2023-05-15] MEDS: BUDESONIDE/FORMETEROL FUMARATE 160/4.5 mcg INHALER IH SCH ×2 (09:22→22:25)
[2023-05-15] MEDS: FUROSEMIDE 40 MG/4 ML INJECTABLE VIAL IVPUSH SCH (09:22)
[2023-05-15] MEDS ORDERED: INSULIN (NOVOLOG) ASPART 100 UNITS/ML 10ML VIAL ONE ×2 (11:28→18:03)
[2023-05-15] MEDS: RIVAROXABAN 20 MG TABLET PO SCH (17:36)
[2023-05-15] MEDS: ATORVASTATIN CA 10 MG TABLET (FP) PO SCH (22:22)
[2023-05-15] MEDS: carBAMazepine 100 MG TAB.CHEW PO SCH (22:23)
[2023-05-16] MEDS: methylPREDNISolone NA SUCC 40 MG/1 ML VIAL IVPUSH SCH ×4 (02:28→21:47)
[2023-05-16] MEDS: hydrALAZINE HCL 25 MG TABLET (FP) PO SCH ×3 (06:31→23:35)
[2023-05-16] MEDS: INSULIN ASPART SLIDING SCALE (NOVOLOG) 1 VIAL SQ SCH ×4 (06:31→23:41)
[2023-05-16] MEDS: INSULIN (LEVEMIR) 100 UNITS/ML UNITS SQ SCH ×2 (06:34→23:37)
[2023-05-16] MEDS: INSULIN (NOVOLOG) ASPART 100 UNITS/ML 10ML VIAL SQ SCH ×3 (06:35→17:25)
[2023-05-16] MEDS: FUROSEMIDE 40 MG/4 ML INJECTABLE VIAL IVPUSH SCH (09:15)
[2023-05-16] MEDS: BUDESONIDE/FORMETEROL FUMARATE 160/4.5 mcg INHALER IH SCH ×2 (09:15→23:35)
[2023-05-16 11:02] LABS: POTASSIUM 4.1 mmol/L (3.5-5.1)
[2023-05-16 11:04] LABS: CALCIUM 8.7 mg/dL (8.5-10.1)
[2023-05-16 11:05] LABS: ALBUMIN 2.8 g/dl (3.4-5.0); BLOOD UREA NITROGEN 32.9 mg/dL (7-18)
[2023-05-16 11:09] LABS: BILIRUBIN,TOTAL 0.6 mg/dL (0.2-1); TOT PROT 6.1 g/dl (6.4-8.2)
[2023-05-16] MEDS ORDERED: FUROSEMIDE 40 MG TABLET (FP) PO SCH (15:45)
[2023-05-16] MEDS ORDERED: INSULIN (NOVOLOG) ASPART 100 UNITS/ML 10ML VIAL ONE ×3 (17:23→23:06)
[2023-05-16] MEDS: RIVAROXABAN 20 MG TABLET PO SCH (17:28)
[2023-05-16] MEDS: BACITRACIN ZINC 15 GM TUBE TOPICAL OINTMENT TP SCH (18:51)
[2023-05-16] MEDS: ATORVASTATIN CA 10 MG TABLET (FP) PO SCH (23:35)
[2023-05-16] MEDS: carBAMazepine 100 MG TAB.CHEW PO SCH (23:41)
[2023-05-17] MEDS: methylPREDNISolone NA SUCC 40 MG/1 ML VIAL IVPUSH SCH ×4 (02:28→21:59)
[2023-05-17] MEDS: hydrALAZINE HCL 25 MG TABLET (FP) PO SCH ×3 (06:59→22:00)
[2023-05-17] MEDS: INSULIN (LEVEMIR) 100 UNITS/ML UNITS SQ SCH ×2 (07:00→22:10)
[2023-05-17] MEDS: INSULIN (NOVOLOG) ASPART 100 UNITS/ML 10ML VIAL SQ SCH ×3 (07:02→17:24)
[2023-05-17] MEDS: INSULIN ASPART SLIDING SCALE (NOVOLOG) 1 VIAL SQ SCH ×4 (07:02→22:15)
[2023-05-17] MEDS: BACITRACIN ZINC 15 GM TUBE TOPICAL OINTMENT TP SCH ×2 (10:00)
[2023-05-17] MEDS ORDERED: FUROSEMIDE 40 MG TABLET (FP) PO SCH (10:00)
[2023-05-17 10:05] LABS: HEMOGLOBIN 12.6 GM/dL (10.7-15.3); MCH 31.2 pg (25.7-33.7); MCHC 34.1 g/dl (32.0-36.0); MEAN CELL VOLUME 91.7 fl (80-96); MEAN PLT VOLUME 8.9 fl (7.5-11.1); PLATELET COUNT 87 10^3/uL (134-434); RBC 4.04 M/mm3 (3.60-5.2); RDW 13.5 % (11.6-15.6)
[2023-05-17 10:08] LABS: POTASSIUM 4.3 mmol/L (3.5-5.1)
[2023-05-17 10:12] LABS: ALBUMIN 2.8 g/dl (3.4-5.0); BLOOD UREA NITROGEN 29.8 mg/dL (7-18); CALCIUM 8.3 mg/dL (8.5-10.1)
[2023-05-17] MEDS: BUDESONIDE/FORMETEROL FUMARATE 160/4.5 mcg INHALER IH SCH ×2 (10:15→22:15)
[2023-05-17 10:16] LABS: CREATININE 0.9 mg/dL (0.55-1.3)
[2023-05-17 10:17] LABS: BILIRUBIN,TOTAL 0.6 mg/dL (0.2-1)
[2023-05-17 10:18] LABS: TOT PROT 6.1 g/dl (6.4-8.2)
[2023-05-17 11:23] LABS: ANISOCYTOSIS 0; HELMET CELLS 0; HOWELL-JOLLY BODIES 0; MACROCYTOSIS 0; OVALOCYTE 0; ROULEAU 0; SICKELED CELLS 0; TARGET CELLS 0; TEAR DROP CELLS 0; TOXIC GRANULATION 0
[2023-05-17] MEDS: FUROSEMIDE 40 MG TABLET (FP) PO SCH (15:20)
[2023-05-17] MEDS: RIVAROXABAN 20 MG TABLET PO SCH (17:10)
[2023-05-17] MEDS ORDERED: ALBUTEROL SO4 2.5/IPRATROPIUM 0.5 INH SOL 3 ML VIAL.NEB. NEB PRN (19:08)
[2023-05-17] MEDS ORDERED: INSULIN (NOVOLOG) ASPART 100 UNITS/ML 10ML VIAL ONE ×2 (21:22)
[2023-05-17] MEDS: ATORVASTATIN CA 10 MG TABLET (FP) PO SCH (22:00)
[2023-05-17] MEDS: carBAMazepine 100 MG TAB.CHEW PO SCH (22:17)
[2023-05-18] MEDS: methylPREDNISolone NA SUCC 40 MG/1 ML VIAL IVPUSH SCH ×4 (03:37→21:25)
[2023-05-18] MEDS: hydrALAZINE HCL 25 MG TABLET (FP) PO SCH ×3 (06:29→21:26)
[2023-05-18] MEDS: FUROSEMIDE 40 MG TABLET (FP) PO SCH ×2 (06:29→13:57)
[2023-05-18] MEDS: INSULIN (LEVEMIR) 100 UNITS/ML UNITS SQ SCH ×2 (06:30→21:26)
[2023-05-18] MEDS: INSULIN (NOVOLOG) ASPART 100 UNITS/ML 10ML VIAL SQ SCH ×3 (06:52→17:29)
[2023-05-18] MEDS: INSULIN ASPART SLIDING SCALE (NOVOLOG) 1 VIAL SQ SCH ×4 (06:52→21:26)
[2023-05-18 09:40] LABS: ALBUMIN 2.7 g/dl (3.4-5.0); BLOOD UREA NITROGEN 31.2 mg/dL (7-18); CALCIUM 8.1 mg/dL (8.5-10.1)
[2023-05-18 09:42] LABS: CREATININE 0.9 mg/dL (0.55-1.3)
[2023-05-18 09:45] LABS: BILIRUBIN,TOTAL 0.8 mg/dL (0.2-1); TOT PROT 6.2 g/dl (6.4-8.2)
[2023-05-18] MEDS: BACITRACIN ZINC 15 GM TUBE TOPICAL OINTMENT TP SCH ×2 (09:45→09:47)
[2023-05-18] MEDS: BUDESONIDE/FORMETEROL FUMARATE 160/4.5 mcg INHALER IH SCH ×2 (09:45→21:24)
[2023-05-18 09:51] LABS: BASO % 1.3 % (0-2.0); HEMATOCRIT 39.1 % (32.4-45.2); HEMOGLOBIN 12.8 GM/dL (10.7-15.3); LYMPH % 10.1 % (8-40); MCH 30.2 pg (25.7-33.7); MCHC 32.6 g/dl (32.0-36.0); MEAN CELL VOLUME 92.7 fl (80-96); MEAN PLT VOLUME 9.6 fl (7.5-11.1); MONO % 6.2 % (3.8-10.2); NEUT % 82.4 % (42.8-82.8); PLATELET COUNT 56 10^3/uL (134-434); RBC 4.22 M/mm3 (3.60-5.2); RDW 13.5 % (11.6-15.6)
[2023-05-18] MEDS: RIVAROXABAN 20 MG TABLET PO SCH (17:28)
[2023-05-18] MEDS: ATORVASTATIN CA 10 MG TABLET (FP) PO SCH (21:25)
[2023-05-18] MEDS: carBAMazepine 100 MG TAB.CHEW PO SCH (21:26)
[2023-05-19] MEDS: methylPREDNISolone NA SUCC 40 MG/1 ML VIAL IVPUSH SCH ×4 (02:01→17:52)
[2023-05-19] MEDS: hydrALAZINE HCL 25 MG TABLET (FP) PO SCH ×3 (05:55→21:57)
[2023-05-19] MEDS: FUROSEMIDE 40 MG TABLET (FP) PO SCH ×2 (05:55→15:16)
[2023-05-19] MEDS: INSULIN ASPART SLIDING SCALE (NOVOLOG) 1 VIAL SQ SCH ×4 (06:44→21:59)
[2023-05-19] MEDS: INSULIN (LEVEMIR) 100 UNITS/ML UNITS SQ SCH ×2 (06:44→21:58)
[2023-05-19] MEDS: INSULIN (NOVOLOG) ASPART 100 UNITS/ML 10ML VIAL SQ SCH ×3 (06:45→17:28)
[2023-05-19 09:30] LABS: HEMATOCRIT 36.4 % (32.4-45.2); MCH 30.5 pg (25.7-33.7); MCHC 33.1 g/dl (32.0-36.0); MEAN CELL VOLUME 92.3 fl (80-96); MEAN PLT VOLUME 9.9 fl (7.5-11.1); PLATELET COUNT 43 10^3/uL (134-434); RBC 3.94 M/mm3 (3.60-5.2); RDW 13.8 % (11.6-15.6); WHITE BLOOD COUNT 12.8 K/mm3 (4.0-10.0)
[2023-05-19 10:01] LABS: POTASSIUM 3.7 mmol/L (3.5-5.1)
[2023-05-19 10:09] LABS: ALBUMIN 2.5 g/dl (3.4-5.0); CALCIUM 8.1 mg/dL (8.5-10.1)
[2023-05-19 10:11] LABS: BLOOD UREA NITROGEN 33.6 mg/dL (7-18)
[2023-05-19 10:16] LABS: ANISOCYTOSIS 1+; MACROCYTOSIS 0
[2023-05-19 10:17] LABS: BILIRUBIN,TOTAL 0.6 mg/dL (0.2-1); TOT PROT 5.7 g/dl (6.4-8.2)
[2023-05-19] MEDS: BUDESONIDE/FORMETEROL FUMARATE 160/4.5 mcg INHALER IH SCH ×2 (10:50→22:07)
[2023-05-19] MEDS: BACITRACIN ZINC 15 GM TUBE TOPICAL OINTMENT TP SCH (11:19)
[2023-05-19] MEDS: RIVAROXABAN 20 MG TABLET PO SCH (17:32)
[2023-05-19] MEDS: ACETAMINOPHEN 1000 MG/100 ML BAG IVPB PRN (18:45)
[2023-05-19] MEDS: carBAMazepine 100 MG TAB.CHEW PO SCH (21:57)
[2023-05-19] MEDS: ATORVASTATIN CA 10 MG TABLET (FP) PO SCH (21:58)
[2023-05-20] MEDS: methylPREDNISolone NA SUCC 40 MG/1 ML VIAL IVPUSH SCH ×3 (01:40→17:44)
[2023-05-20] MEDS: hydrALAZINE HCL 25 MG TABLET (FP) PO SCH ×3 (05:48→21:48)
[2023-05-20] MEDS: ACETAMINOPHEN 1000 MG/100 ML BAG IVPB PRN (05:48)
[2023-05-20] MEDS: FUROSEMIDE 40 MG TABLET (FP) PO SCH (05:48)
[2023-05-20] MEDS: INSULIN (LEVEMIR) 100 UNITS/ML UNITS SQ SCH ×2 (06:30→21:48)
[2023-05-20] MEDS: INSULIN (NOVOLOG) ASPART 100 UNITS/ML 10ML VIAL SQ SCH ×4 (06:31→17:05)
[2023-05-20] MEDS: INSULIN ASPART SLIDING SCALE (NOVOLOG) 1 VIAL SQ SCH ×4 (06:32→21:49)
[2023-05-20] MEDS: BUDESONIDE/FORMETEROL FUMARATE 160/4.5 mcg INHALER IH SCH ×2 (10:32→22:02)
[2023-05-20] MEDS: BACITRACIN ZINC 15 GM TUBE TOPICAL OINTMENT TP SCH (11:08)
[2023-05-20] MEDS ORDERED: METOPROLOL TARTRATE 25 MG TABLET (FP) PO ONE (13:42)
[2023-05-20] MEDS ORDERED: FUROSEMIDE 40 MG/4 ML INJECTABLE VIAL IVPUSH SCH (14:45)
[2023-05-20] MEDS ORDERED: ACETAMINOPHEN 1000 MG/100 ML BAG IVPB PRN (16:21)
[2023-05-20] MEDS: RIVAROXABAN 20 MG TABLET PO SCH (17:44)
[2023-05-20] MEDS: ALBUTEROL SO4 2.5/IPRATROPIUM 0.5 INH SOL 3 ML VIAL.NEB. NEB PRN (18:57)
[2023-05-20] MEDS: carBAMazepine 100 MG TAB.CHEW PO SCH (21:48)
[2023-05-20] MEDS: ATORVASTATIN CA 10 MG TABLET (FP) PO SCH (21:48)
[2023-05-20] MEDS: FUROSEMIDE 40 MG/4 ML INJECTABLE VIAL IVPUSH SCH (21:48)
[2023-05-20] MEDS: METOPROLOL TARTRATE 25 MG TABLET (FP) PO SCH (21:48)
[2023-05-21] MEDS: methylPREDNISolone NA SUCC 40 MG/1 ML VIAL IVPUSH SCH ×3 (02:01→17:12)
[2023-05-21] MEDS: FUROSEMIDE 40 MG/4 ML INJECTABLE VIAL IVPUSH SCH ×2 (06:39→14:01)
[2023-05-21] MEDS: hydrALAZINE HCL 25 MG TABLET (FP) PO SCH ×3 (06:39→21:28)
[2023-05-21] MEDS: INSULIN ASPART SLIDING SCALE (NOVOLOG) 1 VIAL SQ SCH ×4 (06:40→21:35)
[2023-05-21] MEDS: INSULIN (LEVEMIR) 100 UNITS/ML UNITS SQ SCH ×2 (06:40→21:34)
[2023-05-21] MEDS: INSULIN (NOVOLOG) ASPART 100 UNITS/ML 10ML VIAL SQ SCH ×3 (06:41→17:14)
[2023-05-21] MEDS: BACITRACIN ZINC 15 GM TUBE TOPICAL OINTMENT TP SCH ×2 (10:25→11:45)
[2023-05-21] MEDS: METOPROLOL TARTRATE 25 MG TABLET (FP) PO SCH ×2 (10:26→21:28)
[2023-05-21] MEDS: BUDESONIDE/FORMETEROL FUMARATE 160/4.5 mcg INHALER IH SCH ×2 (10:26→21:40)
[2023-05-21] MEDS ORDERED: ACETAMINOPHEN 1000 MG/100 ML BAG IVPB PRN (14:43)
[2023-05-21] MEDS: ALBUTEROL SO4 2.5/IPRATROPIUM 0.5 INH SOL 3 ML VIAL.NEB. NEB PRN ×2 (15:10→20:17)
[2023-05-21] MEDS: RIVAROXABAN 20 MG TABLET PO SCH (17:11)
[2023-05-21] MEDS: carBAMazepine 100 MG TAB.CHEW PO SCH (21:28)
[2023-05-21] MEDS: ATORVASTATIN CA 10 MG TABLET (FP) PO SCH (21:28)
[2023-05-21] MEDS ORDERED: KETOROLAC TROMETHAMINE 15 MG/ML VIAL IM ONE (22:15)
[2023-05-22] MEDS: methylPREDNISolone NA SUCC 40 MG/1 ML VIAL IVPUSH SCH ×3 (01:22→21:11)
[2023-05-22] MEDS: hydrALAZINE HCL 25 MG TABLET (FP) PO SCH ×3 (06:49→21:10)
[2023-05-22] MEDS: FUROSEMIDE 40 MG/4 ML INJECTABLE VIAL IVPUSH SCH ×2 (06:50→14:54)
[2023-05-22] MEDS: INSULIN (NOVOLOG) ASPART 100 UNITS/ML 10ML VIAL SQ SCH ×3 (06:50→17:19)
[2023-05-22] MEDS: INSULIN (LEVEMIR) 100 UNITS/ML UNITS SQ SCH ×2 (06:50→21:11)
[2023-05-22] MEDS: INSULIN ASPART SLIDING SCALE (NOVOLOG) 1 VIAL SQ SCH ×4 (06:51→21:12)
[2023-05-22 07:50] LABS: BASO % 0.9 % (0-2.0); EOS % 0.1 % (0-4.5); HEMATOCRIT 30.3 % (32.4-45.2); HEMOGLOBIN 10.3 GM/dL (10.7-15.3); MCH 31.3 pg (25.7-33.7); MEAN CELL VOLUME 92.1 fl (80-96); MEAN PLT VOLUME 10.4 fl (7.5-11.1); RBC 3.29 M/mm3 (3.60-5.2); RDW 14.2 % (11.6-15.6); WHITE BLOOD COUNT 7.2 K/mm3 (4.0-10.0)
[2023-05-22 07:53] LABS: PLATELET COUNT 31 10^3/uL (134-434)
[2023-05-22 08:42] LABS: POTASSIUM 3.8 mmol/L (3.5-5.1)
[2023-05-22 08:45] LABS: CALCIUM 7.9 mg/dL (8.5-10.1)
[2023-05-22 08:46] LABS: BLOOD UREA NITROGEN 38.2 mg/dL (7-18)
[2023-05-22 08:49] LABS: CREATININE 1.6 mg/dL (0.55-1.3)
[2023-05-22 08:50] LABS: BILIRUBIN,TOTAL 1.1 mg/dL (0.2-1)
[2023-05-22 08:55] LABS: ALBUMIN 1.5 g/dl (3.4-5.0)
[2023-05-22] MEDS: METOPROLOL TARTRATE 25 MG TABLET (FP) PO SCH ×2 (10:17→21:11)
[2023-05-22] MEDS: BACITRACIN ZINC 15 GM TUBE TOPICAL OINTMENT TP SCH (10:28)
[2023-05-22] MEDS: BUDESONIDE/FORMETEROL FUMARATE 160/4.5 mcg INHALER IH SCH ×2 (10:28→21:16)
[2023-05-22] MEDS: ALBUTEROL SO4 2.5/IPRATROPIUM 0.5 INH SOL 3 ML VIAL.NEB. NEB PRN (11:16)
[2023-05-22] MEDS ORDERED: SENNOSIDES 8.6MG TABLET (FP) PO PRN (20:51)
[2023-05-22] MEDS: POLYETHYLENE GLYCOL (HEALTHYLAX) 3350 17 GM PACKET PO SCH (21:10)
[2023-05-22] MEDS: carBAMazepine 100 MG TAB.CHEW PO SCH (21:11)
[2023-05-23] MEDS: hydrALAZINE HCL 25 MG TABLET (FP) PO SCH (05:48)
[2023-05-23] MEDS: FUROSEMIDE 40 MG/4 ML INJECTABLE VIAL IVPUSH SCH ×2 (05:48→14:18)
[2023-05-23] MEDS: INSULIN (NOVOLOG) ASPART 100 UNITS/ML 10ML VIAL SQ SCH (06:21)
[2023-05-23] MEDS: INSULIN (LEVEMIR) 100 UNITS/ML UNITS SQ SCH (06:21)
[2023-05-23] MEDS: INSULIN ASPART SLIDING SCALE (NOVOLOG) 1 VIAL SQ SCH ×4 (06:30→21:40)
[2023-05-23 07:55] LABS: BASO % 0.1 % (0-2.0); HEMATOCRIT 29.8 % (32.4-45.2); HEMOGLOBIN 10.2 GM/dL (10.7-15.3); LYMPH % 9.6 % (8-40); MCH 30.7 pg (25.7-33.7); MCHC 34.2 g/dl (32.0-36.0); MEAN CELL VOLUME 89.8 fl (80-96); MEAN PLT VOLUME 10.4 fl (7.5-11.1); MONO % 10.1 % (3.8-10.2); NEUT % 80.2 % (42.8-82.8); RBC 3.32 M/mm3 (3.60-5.2); WHITE BLOOD COUNT 7.4 K/mm3 (4.0-10.0)
[2023-05-23 08:22] LABS: PLATELET COUNT 33 10^3/uL (134-434)
[2023-05-23] MEDS: METOPROLOL TARTRATE 25 MG TABLET (FP) PO SCH (10:29)
[2023-05-23] MEDS: methylPREDNISolone NA SUCC 40 MG/1 ML VIAL IVPUSH SCH ×2 (10:30→17:45)
[2023-05-23] MEDS: BACITRACIN ZINC 15 GM TUBE TOPICAL OINTMENT TP SCH (10:30)
[2023-05-23] MEDS: POLYETHYLENE GLYCOL (HEALTHYLAX) 3350 17 GM PACKET PO SCH (10:30)
[2023-05-23] MEDS: BUDESONIDE/FORMETEROL FUMARATE 160/4.5 mcg INHALER IH SCH ×2 (10:31→21:34)
[2023-05-23 13:31] LABS: CHLORIDE 90 mmol/L (98-107); POTASSIUM 3.3 mmol/L (3.5-5.1); SODIUM 129 mmol/L (136-145)
[2023-05-23 13:33] LABS: ANION GAP 13 mmol/L (4-13); BLOOD UREA NITROGEN 51.6 mg/dL (7-18); CALCIUM 7.4 mg/dL (8.5-10.1); CO2 26 mmol/L (21-32)
[2023-05-23 13:34] LABS: ALBUMIN 1.3 g/dl (3.4-5.0)
[2023-05-23 13:37] LABS: CREATININE 1.5 mg/dL (0.55-1.3); SGOT/AST 99 U/L (15-37); SGPT/ALT 121 U/L (13-61)
[2023-05-23 13:38] LABS: BILIRUBIN,TOTAL 1.8 mg/dL (0.2-1); TOT PROT 4.9 g/dl (6.4-8.2)
[2023-05-23 13:40] LABS: ALK PHOS 166 U/L (45-117); GLUCOSE,RANDOM 36 mg/dL (74-106)
[2023-05-23] MEDS ORDERED: SPIRONOLACTONE 25 MG TABLET PO SCH (14:45)
[2023-05-23] MEDS ORDERED: POTASSIUM CHLORIDE ORAL LIQUID 20 MEQ/15 ML PO ONE (14:45)
[2023-05-23] MEDS ORDERED: DEXTROSE 50%-WATER 25 GM/50 ML DISP.SYRIN IVPUSH ONE (16:33)
[2023-05-23] MEDS ORDERED: DEXTROSE 50%-WATER - 25 GM/50 ML VIAL IVPUSH ONE (16:33)
[2023-05-23 16:38] LABS: PHOSPHOROUS 3.8 mg/dL (2.5-4.9)
[2023-05-23] MEDS ORDERED: CEFTRIAXONE 1 GM in DEXTROSE 5%-WATER - 50 ML IVPB ONE (17:15)
[2023-05-23] MEDS ORDERED: LIDOCAINE 4% PATCH TP SCH (18:15)
[2023-05-23 19:07] LABS: EPI CELLS 2 /uL (0-25.1); HYALINE CASTS 4 /uL (0-3.1); URINE APPEARANCE TURBID; URINE BACTERIA >9,000 /uL (0-1359); URINE BILIRUBIN 2+ (NEGATIVE); URINE COLOR DK YELLOW; URINE GLUCOSE (UA) NEGATIVE (NEGATIVE); URINE KETONE NEGATIVE (NEGATIVE); URINE LEUK ESTERASE 2+ (NEGATIVE); URINE NITRITE NEGATIVE (NEGATIVE); URINE PROTEIN 1+ (NEGATIVE); URINE RBC 6 /uL (0-23.9); URINE WBC 375 /uL (0-25.8)
[2023-05-23] MEDS: carBAMazepine 100 MG TAB.CHEW PO SCH (21:35)
[2023-05-23] MEDS: ALBUTEROL SO4 2.5/IPRATROPIUM 0.5 INH SOL 3 ML VIAL.NEB. NEB PRN (21:43)
[2023-05-23] MEDS ORDERED: LIDOCAINE PATCH REMOVAL MC SCH (22:00)
[2023-05-24] MEDS: methylPREDNISolone NA SUCC 40 MG/1 ML VIAL IVPUSH SCH (01:42)
[2023-05-24] MEDS ORDERED: MAG HYDROX/AL HYDROX/SIMETH 30 ML UNIT-DOSE CUP PO PRN (05:20)
[2023-05-24] MEDS: ALBUTEROL SO4 2.5/IPRATROPIUM 0.5 INH SOL 3 ML VIAL.NEB. NEB PRN (05:39)
[2023-05-24 06:12] VITALS: BP 145/88; PULSE 91; TEMP 98.4
[2023-05-24] MEDS ORDERED: INSULIN (NOVOLOG) ASPART 100 UNITS/ML 10ML VIAL ONE (06:27)
[2023-05-24] MEDS: INSULIN ASPART SLIDING SCALE (NOVOLOG) 1 VIAL SQ SCH (06:38)
[2023-05-24] MEDS ORDERED: NALOXONE HCL 0.4 MG/ML VIAL IVPUSH ONE ×2 (08:28→10:18)
[2023-05-24] MEDS ORDERED: NALOXONE HCL 0.4 MG/ML VIAL ONE (08:52)
[2023-05-24] MEDS ORDERED: RAPID SEQUENCE INTUBATION KIT NR ONE (08:54)
[2023-05-24] MEDS ORDERED: CEFTRIAXONE 1 GM in DEXTROSE 5%-WATER - 50 ML IVPB SCH (10:00)
[2023-05-24] MEDS ORDERED: PIPERACILLIN/TAZOB 3.375 GM 3.375 GM in DEXTROSE 5%-WATER - 50 ML IVPB SCH (10:00)
[2023-05-24 10:09] VITALS: RESP 16
== END 2023-05-24 09:50 | disposition expired | DRG 194 ==
LOC: JER 23:23 → JERBED 05-12 02:55 → J8W 05-12 23:50 → OBSVTOIN 05-16 15:18 → J8W 05-16 17:52 → JERBED 05-16 20:56 → J8W 05-16 20:58 → J4W 05-20 15:50 → JICU 05-24 09:29
PROVIDERS: ADMIT Internal Medicine; ATTEND Internal Medicine
PROC: 0BH17EZ Insertion of Endotracheal Airway into Trachea, Via Natural or Artificial Opening (ICD-10-PCS; principal; 2023-05-24)
PROC: 5A1935Z Respiratory Ventilation, Less than 24 Consecutive Hours (ICD-10-PCS; 2023-05-24)
PROC: 5A12012 Performance of Cardiac Output, Single, Manual (ICD-10-PCS; 2023-05-24)
DX: I13.0 Hypertensive heart and chronic kidney disease with heart failure and stage 1 through stage 4 chronic kidney disease, or unspecified chronic kidney disease (principal); I50.33 Acute on chronic diastolic (congestive) heart failure; N18.9 Chronic kidney disease, unspecified; E11.22 Type 2 diabetes mellitus with diabetic chronic kidney disease; E78.5 Hyperlipidemia, unspecified; I48.91 Unspecified atrial fibrillation; G47.33 Obstructive sleep apnea (adult) (pediatric); J12.1 Respiratory syncytial virus pneumonia; R79.89 Other specified abnormal findings of blood chemistry; J45.901 Unspecified asthma with (acute) exacerbation; K74.60 Unspecified cirrhosis of liver; F32.A Depression, unspecified; K76.0 Fatty (change of) liver, not elsewhere classified; D69.6 Thrombocytopenia, unspecified; E83.51 Hypocalcemia; E87.6 Hypokalemia; N28.1 Cyst of kidney, acquired; N17.9 Acute kidney failure, unspecified; E11.40 Type 2 diabetes mellitus with diabetic neuropathy, unspecified; E11.65 Type 2 diabetes mellitus with hyperglycemia; J96.01 Acute respiratory failure with hypoxia; I46.9 Cardiac arrest, cause unspecified; E66.01 Morbid (severe) obesity due to excess calories; Z68.41 Body mass index [BMI] 40.0-44.9, adult
CPT/HCPCS: 0241U-QW; 36415; 70450-TC; 71045-TC-FY; 71046-TC-FY; 71250-TC; 76705-TC; 80053; 81003; 82550; 82962; 83036; 83525; 83735; 83880; 84100; 84484; 85025; 85610; 85730; 87045; 87046; 87086; 87186; 87324; 87449; 93005; 93010; 94002; 94010; 94640; 94660; 97116-GP; 97163-GP; 99285-25; G0378